=== PATIENT | female | born 1940 | race Native Hawaiian/Other Pacific Islander ===

== ENCOUNTER 2016-11-29 07:54 | Outpatient (CLI) | payer OTHER ==
[~2016-11-29 07:54] MED LIST: AMOX500C85 PO; ASA LO-DOSE81 MG; AUGMENTIN ES-6001 ML OR; BENICAR20 MG; BENZSOL4 OT; CARV25TA; CEFTIN500 MG OR; EFFER-K20 MEQ PO; FLUT0.05 NAS; FOLI1TAB26 PO; FURO20TA67; PRAV40TA PO; REQUIP1 MG PO
[2016-11-29 08:16] LABS: PLATELET COUNT 181 K/uL (152-353)
== END 2016-11-29 19:20 | disposition home or self-care (01) ==
LOC: LABW 07:54
PROVIDERS: Nuclear Medicine Nuclear Cardiology
DX: I13.0 Hypertensive heart and chronic kidney disease with heart failure and stage 1 through stage 4 chronic kidney disease, or unspecified chronic kidney disease (principal); I50.32 Chronic diastolic (congestive) heart failure; N18.4 Chronic kidney disease, stage 4 (severe); E78.4 Other hyperlipidemia; D50.8 Other iron deficiency anemias
CPT/HCPCS: 36415; 80053; 80061; 83735; 84439; 84443; 85027

== ENCOUNTER 2017-01-03 09:25 | Outpatient (CLI) | payer OTHER | END 2017-01-03 19:47 | disposition home or self-care (01) | LOC: LABW 09:25 | DX: N39.0 Urinary tract infection, site not specified (principal) | CPT/HCPCS: 87077; 87086; 87088; 87186 ==

== ENCOUNTER 2017-01-17 13:20 | Outpatient (CLI) | payer OTHER | END 2017-01-17 20:20 | disposition home or self-care (01) | LOC: LAB 13:20 | DX: R30.0 Dysuria (principal) | CPT/HCPCS: 81000; 87077; 87086; 87088; 87186 ==

== ENCOUNTER 2017-04-03 09:11 | Outpatient (CLI) | payer OTHER ==
[2017-04-03 09:30] LABS: POTASSIUM 3.9 mmol/L (3.6-5.2)
== END 2017-04-03 19:32 | disposition home or self-care (01) ==
LOC: LAB 09:11
PROVIDERS: Nuclear Medicine Nuclear Cardiology
DX: N17.8 Other acute kidney failure (principal); I50.9 Heart failure, unspecified
CPT/HCPCS: 80053; 83735

== ENCOUNTER 2017-04-08 10:03 | Outpatient (CLI) | payer OTHER | END 2017-04-08 11:05 | disposition home or self-care (01) | LOC: RAD 10:03 | DX: I50.9 Heart failure, unspecified (principal) ==

== ENCOUNTER 2017-05-07 09:36 | Outpatient (CLI) | payer OTHER | END 2017-05-07 19:06 | disposition home or self-care (01) | LOC: LAB 09:36 | PROVIDERS: Nuclear Medicine Nuclear Cardiology | DX: E78.4 Other hyperlipidemia (principal) | CPT/HCPCS: 80061; 84450; 84460 ==

== ENCOUNTER 2017-06-14 11:49 | Outpatient (CLI) | payer OTHER ==
[2017-06-14 12:37] LABS: PLATELET COUNT 155 K/uL (152-353)
[2017-06-14 13:22] LABS: POTASSIUM 3.8 mmol/L (3.6-5.2)
== END 2017-06-14 18:57 | disposition home or self-care (01) ==
LOC: LAB 11:49
PROVIDERS: Internal Medicine Medical Oncology
DX: D50.8 Other iron deficiency anemias (principal); E55.9 Vitamin D deficiency, unspecified
CPT/HCPCS: 80053; 82652; 82728; 83550; 85027

== ENCOUNTER 2017-08-12 13:08 | Outpatient (CLI) | payer OTHER | END 2017-08-12 14:10 | disposition home or self-care (01) | LOC: MAMMO 13:08 | DX: Z12.31 Encounter for screening mammogram for malignant neoplasm of breast (principal) ==

== ENCOUNTER 2017-09-11 10:33 | Outpatient (CLI) | payer OTHER ==
[2017-09-11 12:38] LABS: POTASSIUM 4.9 mmol/L (3.6-5.2)
== END 2017-09-11 21:11 | disposition home or self-care (01) ==
LOC: LAB 10:33
PROVIDERS: Internal Medicine
DX: E11.9 Type 2 diabetes mellitus without complications (principal); D51.0 Vitamin B12 deficiency anemia due to intrinsic factor deficiency
CPT/HCPCS: 80053; 80061; 81000; 82043; 82570; 82607; 83036; 84550

== ENCOUNTER 2017-10-16 09:50 | Outpatient (CLI) | payer OTHER ==
[2017-10-16 11:08] LABS: POTASSIUM 4.1 mmol/L (3.6-5.2)
== END 2017-10-16 19:38 | disposition home or self-care (01) ==
LOC: LABW 09:50
PROVIDERS: Internal Medicine
DX: N18.3 Chronic kidney disease, stage 3 (moderate) (principal)
CPT/HCPCS: 36415; 80069; 81000

== ENCOUNTER 2017-11-19 12:55 | Outpatient (CLI) | payer OTHER | END 2017-11-19 19:08 | disposition home or self-care (01) | LOC: LAB 12:55 | PROVIDERS: Nuclear Medicine Nuclear Cardiology | DX: E78.4 Other hyperlipidemia (principal) | CPT/HCPCS: 80061; 84450; 84460 ==

== ENCOUNTER 2017-12-16 09:09 | Outpatient (CLI) | payer OTHER | END 2017-12-16 21:31 | disposition home or self-care (01) | LOC: RAD 09:09 | DX: J42 Unspecified chronic bronchitis (principal) ==

== ENCOUNTER 2018-01-22 11:33 | Outpatient (CLI) | payer OTHER | END 2018-01-22 20:56 | disposition home or self-care (01) | LOC: LAB 11:33 | PROVIDERS: Nuclear Medicine Nuclear Cardiology | DX: I11.0 Hypertensive heart disease with heart failure (principal); E78.4 Other hyperlipidemia; I50.32 Chronic diastolic (congestive) heart failure | CPT/HCPCS: 80061; 84450; 84460 ==

== ENCOUNTER 2018-05-02 09:46 | Outpatient (CLI) | payer OTHER | END 2018-05-02 19:45 | disposition home or self-care (01) | LOC: LAB 09:46 | DX: R30.0 Dysuria (principal) | CPT/HCPCS: 87086; 87088 ==

== ENCOUNTER 2018-07-22 09:06 | Outpatient (CLI) | payer OTHER | END 2018-07-22 22:39 | disposition home or self-care (01) | LOC: LABW 09:06 | PROVIDERS: Nuclear Medicine Nuclear Cardiology | DX: E78.5 Hyperlipidemia, unspecified (principal); E55.9 Vitamin D deficiency, unspecified | CPT/HCPCS: 36415; 80061; 82306; 84450; 84460 ==

== ENCOUNTER 2018-10-20 09:30 | Outpatient (CLI) | payer OTHER ==
[2018-10-20 10:54] LABS: PLATELET COUNT 193 K/uL (152-353)
[2018-10-20 11:35] LABS: POTASSIUM 3.7 mmol/L (3.6-5.2); SODIUM 135 mmol/L (136-145)
== END 2018-10-20 22:18 | disposition home or self-care (01) ==
LOC: RAD 09:30
PROVIDERS: Internal Medicine
DX: E11.9 Type 2 diabetes mellitus without complications (principal); R07.89 Other chest pain
CPT/HCPCS: 36415; 80053; 80061; 82550; 83036; 84439; 84443; 84484; 85027; 85651

== ENCOUNTER 2018-11-10 10:00 | Outpatient (CLI) | payer OTHER | END 2018-11-10 20:51 | disposition home or self-care (01) | LOC: RAD 10:00 | DX: R05 Cough (principal) ==

== ENCOUNTER 2018-12-12 08:10 | Outpatient (CLI) | payer OTHER | END 2018-12-12 19:05 | disposition home or self-care (01) | LOC: LABW 08:10 | PROVIDERS: Nuclear Medicine Nuclear Cardiology | DX: E78.5 Hyperlipidemia, unspecified (principal) | CPT/HCPCS: 36415; 80061 ==

== ENCOUNTER 2019-05-22 12:38 | Outpatient (CLI) | payer OTHER | END 2019-05-22 23:59 | disposition home or self-care (01) | LOC: LAB 12:38 | DX: N30.80 Other cystitis without hematuria (principal) | CPT/HCPCS: 87088 ==

== ENCOUNTER 2019-07-15 07:32 | Outpatient (CLI) | payer OTHER ==
[2019-07-15 07:53] LABS: PLATELET COUNT 169 K/uL (152-353)
[2019-07-15 08:22] LABS: POTASSIUM 3.7 mmol/L (3.6-5.2)
== END 2019-07-15 22:53 | disposition home or self-care (01) ==
LOC: LABW 07:32
PROVIDERS: Nuclear Medicine Nuclear Cardiology
DX: R10.84 Generalized abdominal pain (principal); R19.7 Diarrhea, unspecified; N18.3 Chronic kidney disease, stage 3 (moderate); E78.49 Other hyperlipidemia
CPT/HCPCS: 36415; 80053; 80061; 82150; 83690; 83735; 84439; 84443; 85027

== ENCOUNTER 2019-08-03 14:26 | Outpatient (CLI) | payer OTHER ==
[2019-08-03 15:05] LABS: PLATELET COUNT 156 K/uL (152-353)
[2019-08-03 15:38] LABS: POTASSIUM 4.5 mmol/L (3.6-5.2)
== END 2019-08-03 20:18 | disposition home or self-care (01) ==
LOC: LAB 14:26
PROVIDERS: Internal Medicine
DX: Z00.00 Encounter for general adult medical examination without abnormal findings (principal); I11.0 Hypertensive heart disease with heart failure; E78.49 Other hyperlipidemia; E55.9 Vitamin D deficiency, unspecified; Z79.899 Other long term (current) drug therapy
CPT/HCPCS: 80053; 80061; 81000; 82306; 83036; 84439; 84443; 85027; 87077; 87086; 87088; 87185

== ENCOUNTER 2019-08-21 10:18 | Outpatient (CLI) | payer OTHER ==
[2019-08-21 10:56] LABS: POTASSIUM 4.6 mmol/L (3.6-5.2)
== END 2019-08-21 19:09 | disposition home or self-care (01) ==
LOC: LABW 10:18
PROVIDERS: Nuclear Medicine Nuclear Cardiology
DX: I49.8 Other specified cardiac arrhythmias (principal); I49.5 Sick sinus syndrome
CPT/HCPCS: 36415; 80048; 83735; 84443

== ENCOUNTER 2019-09-02 08:05 | Outpatient (CLI) | payer OTHER | END 2019-09-02 22:24 | disposition home or self-care (01) | LOC: MAMMO 08:05 | DX: Z13.820 Encounter for screening for osteoporosis (principal); Z12.31 Encounter for screening mammogram for malignant neoplasm of breast; N95.8 Other specified menopausal and perimenopausal disorders ==

== ENCOUNTER 2019-09-07 09:12 | Outpatient (CLI) | payer OTHER | END 2019-09-07 20:51 | disposition home or self-care (01) | LOC: RAD 09:12 | DX: J40 Bronchitis, not specified as acute or chronic (principal) ==

== ENCOUNTER 2019-12-21 09:18 | Outpatient (CLI) | payer OTHER | END 2019-12-21 23:05 | disposition home or self-care (01) | LOC: RAD 09:18 | DX: J40 Bronchitis, not specified as acute or chronic (principal) ==

== ENCOUNTER 2020-03-14 16:05 | Outpatient (CLI) | payer OTHER | END 2020-03-14 23:35 | disposition home or self-care (01) | LOC: RAD 16:05 | DX: M25.659 Stiffness of unspecified hip, not elsewhere classified (principal); M25.612 Stiffness of left shoulder, not elsewhere classified; R52 Pain, unspecified ==

== ENCOUNTER 2020-03-15 12:50 | Outpatient (CLI) | payer OTHER | END 2020-03-15 23:55 | disposition home or self-care (01) | LOC: LAB 12:50 | PROVIDERS: Nuclear Medicine Nuclear Cardiology | DX: E78.49 Other hyperlipidemia (principal) | CPT/HCPCS: 80061; 84450; 84460 ==

== ENCOUNTER 2020-05-02 09:22 | Outpatient (CLI) | payer OTHER | END 2020-05-02 23:59 | disposition home or self-care (01) | LOC: LAB 09:22 | DX: Z20.828 Contact with and (suspected) exposure to other viral communicable diseases (principal) | CPT/HCPCS: 87635; G2023; U00003 ==

== ENCOUNTER 2020-09-05 10:03 | Outpatient (CLI) | payer OTHER ==
[2020-09-05 11:09] LABS: PLATELET COUNT 183 K/uL (152-353)
[2020-09-05 11:42] LABS: POTASSIUM 3.9 mmol/L (3.6-5.2)
== END 2020-09-05 22:08 | disposition home or self-care (01) ==
LOC: MAMMO 10:03
PROVIDERS: ATTEND Internal Medicine
DX: Z12.31 Encounter for screening mammogram for malignant neoplasm of breast (principal); E78.2 Mixed hyperlipidemia; N18.30 Chronic kidney disease, stage 3 unspecified; D64.89 Other specified anemias; E03.8 Other specified hypothyroidism
CPT/HCPCS: 36415; 80053; 80061; 84443; 85027

== ENCOUNTER 2020-10-31 08:56 | Outpatient (CLI) | payer OTHER ==
[2020-10-31 09:17] LABS: PLATELET COUNT 150 K/uL (152-353)
[2020-10-31 09:37] LABS: POTASSIUM 3.9 mmol/L (3.6-5.2)
== END 2020-10-31 18:58 | disposition home or self-care (01) ==
LOC: LABW 08:56
PROVIDERS: ATTEND Internal Medicine
DX: E11.9 Type 2 diabetes mellitus without complications (principal)
CPT/HCPCS: 36415; 80053; 83036; 85027

== ENCOUNTER 2021-01-05 09:22 | Outpatient (CLI) | payer OTHER ==
[2021-01-05 09:40] LABS: PLATELET COUNT 150 K/uL (152-353)
[2021-01-05 10:00] LABS: POTASSIUM 4.6 mmol/L (3.6-5.2)
== END 2021-01-05 21:27 | disposition home or self-care (01) ==
LOC: LABW 09:22
PROVIDERS: ATTEND Nuclear Medicine Nuclear Cardiology
DX: E78.2 Mixed hyperlipidemia (principal); N18.30 Chronic kidney disease, stage 3 unspecified; D64.89 Other specified anemias; E03.8 Other specified hypothyroidism
CPT/HCPCS: 36415; 80053; 80061; 84443; 85027

== ENCOUNTER 2021-03-24 22:52 | Emergency (ER) | payer OTHER ==
[~2021-03-24] VITALS: Ht 30.5 cm; Wt 0.5 kg
[2021-04-07 11:41] LABS: POTASSIUM 4.7 mmol/L (3.6-5.2)
[2021-04-07 11:43] LABS: PARTIAL THROMBOPLASTIN TIME 22.9 SECONDS (24.5-33.6)
[2021-04-07 11:44] LABS: PLATELET COUNT 132 K/uL (152-353)
== END 2021-03-25 01:38 | disposition short-term general hospital (02) ==
LOC: ED 22:52
PROVIDERS: Family Medicine
PROC: 0T9B70Z Drainage of Bladder with Drainage Device, Via Natural or Artificial Opening (ICD-10-PCS; principal; 2021-03-24)
DX: I63.9 Cerebral infarction, unspecified (principal); R74.8 Abnormal levels of other serum enzymes; G81.91 Hemiplegia, unspecified affecting right dominant side; R29.810 Facial weakness; R47.9 Unspecified speech disturbances; Z11.52 Encounter for screening for COVID-19
CPT/HCPCS: 51702; 80053; 81000; 82550; 82553; 84484; 85027; 85610; 85730; 87077; 87086; 87088; 87186; 87635; 92977; 93005; 96365; 96375; 99285; J2405; J2997; U0003

== ENCOUNTER 2021-05-05 13:45 | Inpatient (IN) | payer OTHER ==
[~2021-05-05] VITALS: Ht 157.5 cm; Wt 73.7 kg
[2021-05-05 14:43] VITALS: BP 139/60; TEMP 97.7; Ht 157.5 cm; Wt 73.7 kg
--- NOTE | 2021-05-05 15:01 | NUR ---
Patient was admitted to the Swing Bed Program and is on moist and minced with thin liquids and receives a [place] Shake with meals; hemiplegia fullt cerebral inf. and is 5'2" or 62" and IBW = 110 +/-10% (99 to 121 lbs.) and is at 164.7 lbs. and BMI at 30.12 and is Class I Obesity and is 150% of IBW andis an 81 YOF and is on folic acid and lasix and RD reviewed all medications and the EMR information and details' Labs reveal WBC, Platelet count, D1, and Free T3 all depressed and those elevated are glucose at 132, BUN, Creat., RBC, ESR, HGBA1C 7.1, Alk PO4, Troponin, B Greer Peptide, Trig at 200 and VLDL all elevated and reviewed all labs. kcal needs for IBW x 25 to 40 = 1250 t0 2000 kcal/day, protein x .8 to 1.5 = 40 to 75 grams per day and fluids for IBW x 25 to 30 = 1250 to 2000 ml/cc per day. RD available as needed. RD Recommendations: 1-Monitor Labs 2-May want to add 1800 Calorie High Fiber Cardiac diet plan 3-OT, ST and TX to work with the patient as needed. 4-Add a MVI if eating <50% of meals 5-Add Vitamin C 500 mg BID 6-Add ZNSO4 220 mg per day x 14 days
[2021-05-05 20:00] VITALS: BP 125/59; TEMP 98.2
--- NOTE | 2021-05-05 20:03 | NUR ---
SPO2 ON R/A 97%, HR 66, RR 16.
--- NOTE | 2021-05-06 07:35 | NUR ---
Pt. RESTING IN BED WITH WEAKNESS ON R SIDE OF BODY. REDNESS AT BUTTOCK. TURN WITH ASSIST.
--- NOTE | 2021-05-06 08:17 | NUR ---
PRN TX NOT NEEDED AT THIS TIME. HR 73, RR 16 SPO2 97% ON RA, BBS CLEAR-NAD NOTED AT THIS TIME
--- NOTE | 2021-05-06 17:45 | NUR ---
FAMILY MEMBERS AT THE WINDOW VISITING. Pt. MOVING R HAND AND WAVING. Pt. CAN MOVE R FOOT A SLIGHT AMOUNT.
[2021-05-06 20:00] VITALS: BP 123/55; TEMP 98.7
--- NOTE | 2021-05-06 22:54 | NUR ---
PT IS ALERT, ORIENTED. PT HAS PEG TUBE BUT IS NOT USING IT. PT TAKING FOOD, DRINK AND MEDS BY MOUTH.
--- NOTE | 2021-05-07 02:48 | NUR ---
PATIENT HAS BEEN CHANGED AND PERINEAL AREA HAS BEEN WASHED
--- NOTE | 2021-05-07 04:00 | NUR ---
PT DOES REQUEST BEDPAN TO URINATE. PT IS ALERT AND ORIENTED. NO VOICED COMPLAINTS AT THIS TIME.
[2021-05-07 08:00] VITALS: BP 134/54; TEMP 97.4
--- NOTE | 2021-05-07 08:02 | NUR ---
IN PT'S ROOM FOR ASSESSMENT, PT IS LAYING IN LOW FOWLERS RESTING WITH TV ON WEARING HER GLASSES. PATIENT IS AWAKE AND ALERT AND SPEAKING CLEARLY. HER DENTURES ARE NOT IN. LUNG SOUNDS ARE PRESENT AND CLEAR, NO COUGH IS PRESENT. HEART SOUNDS ARE REGULAR RATE AND RHYTHM, PULSES FELT IN ALL FOUR EXTREMITIES, CAP REFILL <3 SEC, NO EDEMA PRESENT. SLIGHT SKIN TINTING PRESENT, SKIN IS WARM AND DRY. GASTRIC SOUNDS PRESENT IN ALL FOUR QUADRANTS, ABDOMEN IS SOFT AND FLAT WITH PEG TUBE PRESENT UNDERNEATH BANDAGE. PT SHOWS WEAKNESS IN THE RT UPPER AND LOWER EXTREMITIES. PT DENIES ANY PAIN OR NEEDS AT THIS TIME.
--- NOTE | 2021-05-07 08:53 | NUR ---
MORNING MEDICATIONS WERE ADMINISTERED TO PT. PT SWALLOWED PILLS WITH NO DIFFICULTY. PT IS LEFT IN HIGH FOWLERS, BEDRAILS UP X3, AND CALL LIGHT WITHIN REACH. PT DENIES ANY NEEDS AT THIS TIME.
--- NOTE | 2021-05-07 11:18 | NUR ---
PT HAS BEEN ROLLED TO THE RIGHT SIDE AND PROPPED USING PILLOWS. BUTTOCKS AREA IS VERY RED AND EXCORIATED, AMMONIA TECHNICIAN GOT SOME CALAZINE LOTION AND APPLIED TO BUTTOCK AREA. WILL CONTINUE TO MONITOR.
--- NOTE | 2021-05-07 12:25 | NUR ---
PT HAS BEEN MOVED UP IN THE BED AND ROTATED TO THE LEFT SIDE USING PILLOWS PROPS AND A PILLOW BETWEEN HER KNEES. PT HAS FAMILY AT THE WINDOW VISITING AND TALKING TO HER THROUGH THE PHONE. PT DENIES ANY NEEDS AT THIS TIME.
[2021-05-07 20:00] VITALS: BP 116/56; TEMP 98.1
--- NOTE | 2021-05-08 02:37 | NUR ---
05/07/21 2000: PT AWAKE TALKING ON TELEPHONE. PT ALERT, ORIENTED. PT STATED THAT OT HAD WORKED WITH HER TODAY AND SHE FELT PRETTY GOOD. NO VOICED COMPLAINTS AT THIS TIME.
[2021-05-08 08:00] VITALS: BP 149/59; TEMP 98.7
--- NOTE | 2021-05-08 08:25 | NUR ---
RT TO ASSESS PT. PT BBS ARE CLEAR/DIMINISHED AT THIS TIME. NO INDICATION FOR NEB TX. SPO2 IS 94% ON 3LPM NC AT 32%. HR-59. WILL CONTINUE TO MONITOR PT.
--- NOTE | 2021-05-08 08:51 | NUR ---
RT TO ASSESS PT. BBS ARE CLEAR/DIMINISHED. NO INDICATION FOR PRN TX AT THIS TIME. SPO2 IS 94% ON RA.
[2021-05-08 20:00] VITALS: BP 134/54; TEMP 98.1
--- NOTE | 2021-05-09 06:45 | NUR ---
Pt rested through the night with no c/o. No s/s of distress. Able to voice needs/concerns. Call light in easy reach.
[2021-05-09 08:00] VITALS: BP 143/62; TEMP 97.9
--- NOTE | 2021-05-09 08:05 | NUR ---
PT COMPLAINING OF NECK PAIN AT A 3 ON 0-10 PAINSCAL THIS AM, ADJUSTED PILLOWS ON BED AND ADMINISTERED TYLENOL, WILL REASSESS PAIN, PT LYING IN HF, NAD NOTED, NONLABORED BREATHING, NO FURTHER NEEDS AT THIS TIME, WILL CONTINUE TO MONITOR
--- NOTE | 2021-05-09 10:30 | NUR ---
PT AND OT IN PATIENT RM TO PUT PATIENT IN CHAIR, EXTENSIVE ASSITANCE NEEDED X2, PATIENT TRANSFERRED FROM BED TO CHAIR, NAD NOTED
--- NOTE | 2021-05-09 12:45 | NUR ---
IN PT RM TO PUT PT BACK TO BED FROM CHAIR, RACHEL LIFT USED, TOTAL ASSISTANCE NEEDED, NAD NOTED, PT PLACED IN HF, LUNCH WARMED AND SETUP FOR PT AT THIS TIME, NO FURTHER NEEDS, CALL LIGHT PLACED WITHIN REACH, WILL CONTINUE TO MONITOR
[2021-05-09 20:00] VITALS: BP 124/58; BP 136/53; TEMP 98
--- NOTE | 2021-05-10 06:03 | NUR ---
Pt resting in bed alert at this time watching tv with no c/o voiced. Assisted pt with bed murray x3 this shift. Pt does call when needing to toilet but also wears brief due to occasional incontinent episodes. Pt has called x2 for assist with repositioning RLE. Pt states she is unable to move it. No s/s of distress at this time. Call light in easy reach.
[2021-05-10 08:00] VITALS: BP 122/55; TEMP 97.7
[2021-05-10 20:00] VITALS: BP 121/55; TEMP 98.5
[2021-05-11 08:00] VITALS: BP 150/62; TEMP 97.4
--- NOTE | 2021-05-11 17:22 | NUR ---
IDT Swing Bed Meeting today: Resident is on a Regular diet with minced and moist foods with thin liquids and receives [place] Glucerna with meals, I visited iwht the patient today and she stated she was pleased with meals.62 inches at 166.2 lbs. Stated the coffee is too strong and I will get them to send 1 cup of coffee, an extra cup and 1 cup of hot water and then she can weaken as is needed. She dislikes eggs, likes pancakes and dry cereal and will get the FS dept. to alter these every other day and also I will tlak with the GM/CDM to make sure all is carried out and is on the tray card. Her favorite cereals are Cheerios and Fruit Loops and likes milk with cereal. RD available as needed.
[2021-05-11 20:00] VITALS: BP 116/45; TEMP 98.2
--- NOTE | 2021-05-12 04:10 | NUR ---
PT RESTING WELL. NO DISTRESS NOTED. NO VOICED COMPLAINTS AT THIS TIME.
[2021-05-12 08:10] VITALS: BP 115/54; TEMP 97.9
--- NOTE | 2021-05-12 10:16 | NUR ---
we had IDT meeting with pt in room yesterday, see signed list, and with her granddaughter, Nicole Goldberg on speaker phone, and with Veronica Arellano RD also on speaker phone. Pts goal is to return home to her and to be as independent as possible. She stated if needed she would prefer [facility] in home or to attend out patient therapy.
--- NOTE | 2021-05-12 11:28 | NUR ---
PT IN LOW-FOWLERS POSITION IN BED. NAD NOTEDL. PT C/O HEADACHE, ADMINISTERED TYLENOL ORDERED. PT RATED PAIN A 6 ON PAIN SCALE OF 1-10, 10 BEING WORSE. PT ALERT. PT REFUSED BREAKFAST TRAY, "I DON'T WANT IT." FAMILY BROUGHT PT BREAKFAST AND PT WAS CONTENT. NO OTHER VOICED COMPLAINTS. CONTINUES TO HAVE WEAKNESS TO RIGHT UPPER AND LOWER EXTREITIES.
[2021-05-12 20:00] VITALS: BP 114/47; TEMP 98.2
[2021-05-13 08:00] VITALS: BP 118/44; TEMP 97.8
--- NOTE | 2021-05-13 08:08 | NUR ---
PT IN LOW FOWLERS POSITION IN BED WITH NECK PILLOW IN PLACE. PT STATED SHE NEEDED TO BE CHANGED BECAUSE SHE HAD A BM, AFTER CHECKING PT, PT DID NOT HAVE A BM JUST FLATULUS. PT STATED SHE FELT BETTER JUST RELEASING FLATULUS. PT ALERT AND ORIENTED. NAD NOTED. DENIES ANY PAIN/DISCOMFORT.
--- NOTE | 2021-05-13 15:57 | NUR ---
PT IN BED WITH EYES CLOSED AND SNORING. PT REFUSED A BATH TODAY. NO NAD NOTED.
--- NOTE | 2021-05-13 17:25 | NUR ---
PT HAD BM X2 ON THIS SHIFT. PT STATES THAT SHE IS CONSTIPATED, BM SOFT AND FORMED. PT HAS RASH TO RECTAL AREA AND BARRIER CREAM APPLIED. DENIES ANY PAIN OR DISCOMFORT. NAD NOTED.
[2021-05-13 20:00] VITALS: BP 115/47; TEMP 98.5
--- NOTE | 2021-05-14 04:02 | NUR ---
Pt resting in bed with eyes closed. Pt calls for assist after having incontinent episodes. Pt has had soft formed BM x2 this shift thus far. Pt requires two person assist with being pulled up in bed and repositioning. Pt given Tylenol per request with no further c/o voiced at this time. Call light in easy reach.
[2021-05-14 08:00] VITALS: BP 138/67; TEMP 98.1
--- NOTE | 2021-05-14 10:54 | NUR ---
PT IN LOW FOWLERS POSITION IN BED. ALERT AND OREIENTED. PT ASKED FOR HER DEPENDS TO BE CHECKED, SHE THOUGHT SHE HAD A BM. CHECKED PT AND PT HAD A BM, SOFT AND FORMED STOOLS. CHANGED PT AND SET UP BREAKFAST MEAL. PTS LANTUS NOT ADMINISTERED R/T PT LIMITED INTAKE OF BREAKFAST AND SE=830. AM MEDS ADMINISTERED PO AND PT TOLERATED WELL. DENIES ANY PAIN/DISCOMFORT.
[2021-05-14 20:00] VITALS: BP 145/64; TEMP 98.2
--- NOTE | 2021-05-15 04:35 | NUR ---
Pt resting in bed with eyes closed. Easily aroused during rounds for VS checks. Denies c/o pain/discomfort. Incontinent care provided. No s/s of distress. Call light in easy reach.
[2021-05-15 08:00] VITALS: BP 129/62; TEMP 97.9
[2021-05-15 20:00] VITALS: BP 118/61; TEMP 98.1
--- NOTE | 2021-05-16 04:18 | NUR ---
PT RESTING WELL. NO COMPLAINTS VOICED.
[2021-05-16 08:00] VITALS: BP 119/52; TEMP 98.1
--- NOTE | 2021-05-16 14:30 | NUR ---
SPOKE WITH PATIENT'S NIECE JESSICA FOR AN UPDATE.
[2021-05-16 20:00] VITALS: BP 126/52; TEMP 97.9
--- NOTE | 2021-05-16 20:36 | NUR ---
PT C/O SEVERE PAIN IN RIGHT AND LEFT LEGS. ER DOCTOR NOTIFIED AND ORDER RECEIVED FOR TORADOL IM. ORDER WRITTEN AND SCANNED TO PHARMACY.
[2021-05-17 08:00] VITALS: BP 111/52; TEMP 98.3
--- NOTE | 2021-05-17 11:22 | NUR ---
PT UP IN CHAIR WITH ASSISTANCE FROM [facility] STAFF AND OT. PT ALERT AND OREIENTED. NAD NOTED. PTS LANTUS NOT GIVEN R/T TC=274 AND PT ONLY ATE 25% OF BREAKFAST. DENIES ANY PAIN/DISCOMFORT. AM MEDS ADMINISTERED AND PT TOLERATED WELL. PT ALERT AND ORIENTED. WILL GIVE LOGICAL VERBAL FEEDBACK. PT HAS RIGHT SIDED WEAKNESS IN UPPER AND LOWER EXTREMITIES.
--- NOTE | 2021-05-17 15:51 | NUR ---
PT C/O PAIN IN BILATERAL LOWER EXTREMITIES. PER DR CEDENO TORADOL 30MG IM D/C'D AND NEW ORDER FOR TRAMADOL 50MG PO Q8H PRN. ADMINISTERED TRAMADOL ORDERED AT 1525 FOR PAIN. PT UNABLE TO RATE PAIN. PT UP IN CHAIR FOR MOST OF DAY WORKING ON [employer] PUZZLE. WITH ASSISTANCE FROM [facility] STAFF TRANSFERRED BACK TO BED.
[2021-05-17 20:00] VITALS: BP 125/57; TEMP 98.4
[2021-05-18 08:00] VITALS: BP 122/55; TEMP 97.7
--- NOTE | 2021-05-18 10:50 | NUR ---
PT LAYING SUPINE IN BED, ALERT AND ORIENTED. NAD NOTED. DENIES ANY PAIN/DISCOMFORT AT PRESENT TIME. AM MEDS ADMINISTERED ORDERED AND PT TOLERATED WITH NO DIFFICULTY. PT CONTINUES TO HAVE WEAKNESS TO RIGHT SIDE UPPER AND LOWER EXTREMITIES.
--- NOTE | 2021-05-18 18:19 | NUR ---
PT LYING SUPINE IN BED. PT DENIES ANY PAIN/DISCOMFORT. NO PAIN MED ADMINISTERED THIS SHIFT, PT STATED "I MOSTLY NEED IT AT NIGHT." PT ALERT AND ORIENTED. PT UP IN CHAIR MOST OF THE DAY ASSISTED BY PHYSICAL THERAPY. [facility] STAFF ASSISTED PT BACK TO BED.
[2021-05-18 20:00] VITALS: BP 120/52; TEMP 98.1
--- NOTE | 2021-05-19 04:42 | NUR ---
Pt resting in bed with eyes closed. HOB in mid gary's position. Cont to require assistance with moving right leg when repositioning in bed. Also requires 2 person assist at times with incontinent care due to resident unable to hold herself over on one side long enough for staff to perform care. No s/s of distress at this time. Call light in easy reach.
--- NOTE | 2021-05-19 07:36 | NUR ---
PT AWAKE AND ALERT IN LOW FOWLERS POSTION IN BED. PT DENIES ANY PAIN OR DISCOMFORT AT PRESENT TIME. PT STATED "I DIDN'T GET ANY REST LAST NIGHT, I WAS HURTING ALL NIGHT IN MY NECK AND LEGS. PT WAS GIVEN PAIN MED ORDERED LAST DOSE AT THE END OF 7P-7A SHIFT.
[2021-05-19 08:14] VITALS: BP 108/52; TEMP 98
--- NOTE | 2021-05-19 10:48 | NUR ---
PT IN SUPINE POSITION IN BED WITH EYES CLOSED. NO C/O PAIN OR DISCOMFORT VOICED THIS AM.
--- NOTE | 2021-05-19 12:22 | NUR ---
PT IN BED EATING LUNCH, AT OUTSIDE WINDOW AND TALKING TO PT ON THE TELEPHONE. DENIES ANY PAIN/DISCOMFORT AT PRESENT TIME. PT HAD SMALL BM, FORMED AND SOFT.
--- NOTE | 2021-05-19 15:15 | NUR ---
Talked with Lianne today over the IDT team and she stated that the patient stated no appetite and has gone from 164 to 16o lbs. with a decrease fo 4 lbs. in the last 2 weeks and relayed to the FS staff about weak coffee as she wants and is on a minced and moist meats with thin liquids and [place] Glucerna with meals and dilikes vanilla and chocolate and realyed ot the fSD to add strawberries or strawberry syrup. RD available as needed.
[2021-05-19 20:00] VITALS: BP 135/60; TEMP 97.9
--- NOTE | 2021-05-20 02:28 | NUR ---
TATIANA WAS HELD BLOOD SUGAR IS 115.
--- NOTE | 2021-05-20 02:28 | NUR ---
PT WAS GIVEN TRAMADOL ORDERED FOR PAIN.
--- NOTE | 2021-05-20 03:06 | NUR ---
PT WAS WHEELCHAIRED TO XRAY FOR CT.
[2021-05-20 08:03] VITALS: BP 105/64; TEMP 97.5
[2021-05-20 20:00] VITALS: BP 131/81; TEMP 98
--- NOTE | 2021-05-20 20:00 | NUR ---
PT STATES SHE IS HUNGRY. PT'S FAMILY BROUGHT PT A MEAL FROM HOME. SET UP WAS DONE. DENTURES WERE CLEANED AND INSERTED. PT IS PRESENTLY TALKING ON THE PHONE WITH FRIEND. NO COMPLAINTS VOICED. BEDSIDE TABLE IN EASY REACH. INSTRUCTED PT TO CALL FOR ASSISTANCE. PT VOICED UNDERSTANDING.
--- NOTE | 2021-05-20 21:00 | NUR ---
PM MEDICATIONS WERE GIVEN. PT HAD SMALL SOFT STOOL. PT WAS CLEANED AND NEW BRIEF WAS PLACED ON.
--- NOTE | 2021-05-20 22:34 | NUR ---
TATIANA WAS HELD. BLOOD SUGAR IS 110.
--- NOTE | 2021-05-20 23:00 | NUR ---
TRAMADOL WAS GIVEN TO PT FOR COMPLAINTS OF BONE PAIN.
[2021-05-21 08:00] VITALS: BP 128/56; TEMP 97.7
--- NOTE | 2021-05-21 18:45 | NUR ---
PT WAS INTUBATED BY DR. ANDREWS AT 1826. PT ON VENTILATOR. SETTINGS TIDAL VOLUME 500, FIO2 50%,RR 22, PEEP 5, PS10. PT IS STABLE AND WILL CONTINUE TO BE MONITORED.
[2021-05-21 20:00] VITALS: BP 107/56; TEMP 98.2
--- NOTE | 2021-05-21 22:24 | NUR ---
PT STATED SHE WAS FEELING MUCH BETTER TODAY. NO VOICED COMPLAINTS.
--- NOTE | 2021-05-22 07:46 | NUR ---
PT LYING SUPINE IN LOW FOWLERS POSITION IN BED WITH EYES CLOSED. RESP EVEN AND UNLABORED. NAD NOTED.
[2021-05-22 08:00] VITALS: BP 134/84; TEMP 97.8
--- NOTE | 2021-05-22 18:30 | NUR ---
PT LAYING IN BED WATCHING TELEVISION. DENIES ANY PAIN/DISCOMFORT TODAY, PT REFUSED SCHEDULED PAIN MED THIS SHIFT. DID NOT ADMINISTER LANTUS THIS SHIFT R/T PTS DECREASED APPETITE AND BLOOD GLUSCOSE BEING 117. PT HAD A BMX1 WITHOUT CONSTIPATION. PT REPLIED REGARDING DECREASED APPETITE, "I JUST DON'T HAVE A TASTE FOR CERTAIN FOODS." FAMILY BRINGS IN FOOD FOR PT OCCASIONALY. NAD NOTED.
[2021-05-22 20:00] VITALS: BP 104/57; TEMP 98.6
--- NOTE | 2021-05-23 05:15 | NUR ---
Pt resting in bed with eyes closed. Pt requires extensive two person assist with repositioning and pulling up in bed. Encouraged pt to assist with positioning but pt dependent upon staff during this shift and states "I can't." Cont to have RLE weakness and requires staff to position RLE for her but is able to use RUE. Pt utilizes both hands when holding drinking cup. Calls for bed murray at times but is also incontinent of bowel and bladder. No s/s of distress. Call light in easy reach.
[2021-05-23 08:00] VITALS: BP 122/57; TEMP 98.1
--- NOTE | 2021-05-23 08:35 | NUR ---
PT LYING SUPINE IN BED WITH EYES CLOSED. RESP. EVEN AND UNALABORED. NAD NOTED.
--- NOTE | 2021-05-23 13:50 | NUR ---
PT UP IN CHAIR BY THE WINDOW IN HER ROOM WITH ASSISTANCE FROM PT. DENIES ANY PAIN/DISCOMFORT. NO VOICED COMPLAINTS.NAD NOTED. PT PARTICIPATED MORE TODAY WITH PHYSICAL THERAPY..
--- NOTE | 2021-05-23 18:45 | NUR ---
PT SAT UP IN CHAIR UNTIL AFTER LUNCH. DENIES ANY PAIN/DISCOMFORT THIS SHIFT. AND FAMILY VISITED PT AT ROOM WINDOW DURING THE DAY. PT A&O X4. NAD NOTED. PT HAD BM X1 THIS SHIFT, NORMAL AND FORMED BM, NO CONSTIPAITON.
[2021-05-23 20:00] VITALS: BP 111/57; TEMP 97.9
--- NOTE | 2021-05-23 20:25 | NUR ---
Pt alert resting in bed in low gary's position. Denies c/o pain/discomfort at this time. Pt watching tv. No s/s of distress.
--- NOTE | 2021-05-24 04:40 | NUR ---
Pt resting in bed with eyes closed. Calls for bedpan as needed but also has occassional incontinent episodes. PRN tramadol given at 2300 for right shoulder pain with relief noted. Required two person assist with pullinng pt up in bed. Pt attempts to help by using her hands on the rail but doesn't assist with pulling her body up. Has rested through the night without further c/o. No s/s of distress. Call maryjane in easy reach.
[2021-05-24 08:00] VITALS: BP 115/65; TEMP 98.3
--- NOTE | 2021-05-24 15:19 | NUR ---
PT LAYING SUPINE IN BED WITH EYES CLOSED AND SNORING. NAD NOTED. NO C/O PAIN/DISCOMFORT TODAY. PT UP IN CHAIR FOR A FEW HOURS BEFORE LUNCH. PT USED THE BEDSIDE COMMODE WITH ASSISTANCE FROM STAFF X2 PEOPLE. PT TRADED OFF TO NURSE ALEMAN AND REPORT GIVEN AT 1520.
[2021-05-24 20:00] VITALS: BP 119/54; TEMP 98.2
--- NOTE | 2021-05-24 21:00 | NUR ---
PT IS SWING BED STATUS. PT IS RECEIVING PT DURING THE DAY SHIFT. PT STATES "I SO READY TO GO HOME". PM MEDICATIONS WERE GIVEN AND PO PAIN MEDICATION. PT ASK FOR ASSIT TO BEDPAN. PCT AT BEDSIDE TO ASSIST. BEDSIDE TABLE IN EASY REACH.
--- NOTE | 2021-05-25 01:24 | NUR ---
PAIN MEDICATION EFFECTIVE. PT WITH NO COMPLAINTS VOICED.
[2021-05-25 08:00] VITALS: BP 124/57; TEMP 98.3
[2021-05-25 20:00] VITALS: BP 118/52; TEMP 98.1
[2021-05-26 08:00] VITALS: BP 116/51; TEMP 98.4
--- NOTE | 2021-05-26 08:00 | NUR ---
PT IS AWAKE AND ALERT AND ORIENTED LAYING IN THE BED WATCHING TV. HEART SOUNDS S1 AND S2 ARE AUSCULTATED, PULSES IN ALL 4 EXTREMITIES ARE PALPATED, +1 PITTING EDEMA PRESENT IN LLE. WEAKNESS IN RUE AND RLE INDICATED. SKIN TURGOR IS TENTING, CAP REFILL <3 SEC. GASTRIC SOUNDS PRESENT IN ALL QUADRANTS. PT DENIES ANY PAIN AT THIS TIME. CALL LIGHT IS WITHIN REACH, BED RAILS UP X2, AND PT LEFT IN LF POSITION. WILL CONTINUE TO MONITOR.
[2021-05-26 20:00] VITALS: BP 123/53; TEMP 98.7
--- NOTE | 2021-05-27 04:42 | NUR ---
Pt is resting in bed with eyes closed. PRN pain med given earlier with hs meds for BLE and lower back pain with relief noted. Pt had incontinent episodes this shift with pericare given. No s/s of distress noted. Call light in easy reach.
--- NOTE | 2021-05-27 07:30 | NUR ---
PT REQUEST BRIEF CHANGE AT THIS TIME, PT ABLE TO TURN TO RT SIDE WITH MINIMAL ASSIST AND PT TURNED TO LT SIDE WITH EXTENSIVE ASSIST X 1, PT DIDNOT ASSIST WITH BRIEF CHANGE OR WIPING, PT TOLERATED WELL, NAD NOTED, NONLABORED BREATHING, PT STATES SHE WANTS ALL SIDE RAILS UP, ADVISED PT THAT IS A RESTRAINT AND PT STILL REQUEST TO HAVE BED RAILS UP X4, NO FURTHER NEEDS AT THIS TIME, CALL LIGHT PLACCED WITHIN REACH, WILL CONTINUE TO MONITOR
[2021-05-27 08:00] VITALS: BP 124/57; TEMP 97.9
[2021-05-27 20:00] VITALS: BP 125/53; TEMP 98.2
[2021-05-28 08:00] VITALS: BP 118/55; TEMP 97.9
--- NOTE | 2021-05-28 10:56 | NUR ---
DRESSING CHANGED TO PEG TUBE SITE, REMOVED PREVIOUS DRESSING AND CLEANSED AREA AROUND PEG TUBE SITE WITH NS, NO FOUL ODOR NOTED, SITE CLEAN AND DRY, DRAIN GAUZE PLACED TO PEG SITE AND ABD PLACED OVER PEG SITE AND PEG TUBE, ABD PADS TAPED IN PLACE WITH MEDIPORE TAPE, PT TOLERATED WELL, NAD NOTED, PT LYING IN HF WATCHING TV, NO FURTHER NEEDS AT THIS TIME, CALL LIGHT WITHIN REACH, WILL CONTINUE MONITOR
[2021-05-28 20:00] VITALS: BP 129/50; TEMP 98.3
[2021-05-29 08:00] VITALS: BP 94/51; TEMP 97.8
[2021-05-29 20:00] VITALS: BP 123/47; TEMP 97.6
--- NOTE | 2021-05-30 03:29 | NUR ---
PT RESTING QUIETLY. NO DISTRESS NOTED. PT CALLS FOR BEDPAN WHEN SHE NEEDS TO VOID.
[2021-05-30 08:00] VITALS: BP 138/55; TEMP 98.2
[2021-05-30 20:00] VITALS: BP 134/57; TEMP 99.2
--- NOTE | 2021-05-31 05:34 | NUR ---
PT HAS RESTED WELL THIS SHIFT. NO COMPLAINTS OF PAIN. PT HAS CALLED FOR BEDPAN 2X THIS SHIFT AND WAS INCONTINENT IN DIAPER DURING NIGHT. PT MOVED THE RIGHT ARM AND HAND BUT HAS LITTLE STRENGTH.
[2021-05-31 08:00] VITALS: BP 128/64; TEMP 98.9
--- NOTE | 2021-05-31 12:30 | NUR ---
IN PT RM TO ASSIST PT BACK TO BED AND ON BEDPAN, EXT ASSIST NEEEDED X2 TO LIFT PT TO STANDING POSITION AND PIVOT PT OVER TO BED, PT UNABLE TO GIVE MUCH ASSISTANCE WITH TRANSFERRING FROM CHAIR TO BED, PT TOLERATED WELL, PT PLACED ON BED MORALES AT THIS TIME, CALL LIGHT WITHIN REACH, WILL CONTINUE TO MONITOR
[2021-05-31 20:00] VITALS: BP 112/50; TEMP 98.4
[2021-06-01 08:00] VITALS: BP 109/52; TEMP 97.4
--- NOTE | 2021-06-01 10:48 | NUR ---
Visited with patient moris petty. Provided her with coloring sheets, and word search puzzles. She was telling ghost writer that she had been given color sheets the other day and that she had worked on them. She said that if she did not finish the sheets that she was given she would finish them at home.
--- NOTE | 2021-06-01 17:19 | NUR ---
Visited with patient in her room this afternoon. Resident said, "Leg me show you something. Look down at my foot." Resident raised her right leg up from the bed and wiggled her right toes. Resident stated, "I couldn't do that this morning. This afternoon around 2 o'clock something told me to try to lift my leg and that was the first time I have been able to do it since the stroke. I can move my right shoulder some too." While talking with Mrs. Yao, her granddaughter Nicole Goldberg arrived outside the room window. Mrs. Yao saw her and told her to call. Nicole called from her cell phone and Mrs. Yao answered her room phone and told her to look at her legs. Mrs. Yao asked for her blankets to be moved so Nicole could see that it was her affected leg that she was lifting. Mrs. Yao lifted her right leg up a few inches from the bed and held it there for a few seconds multiple times. Mrs. Yao was also able to bend her right knee slightly. Mrs. Yao shed some happy tears and Nicole applauded her from the window. Provided encouragement to keep working hard with therapy. Also encouraged patient to practice using the bedside commode with staff member assistance x 2 rather than using the bedpan when she needs to toilet. Reminded her that she is making progress toward her goal of returning home with her . Granddaughter Nicole Goldberg told her how proud she was of the progress she has made and asked her to continue working hard to gain as much function back as possible. Upon leaving the room so they could enjoy their window visit in private, asked both if they needed anything else. Both should their head "no" and smiled. Then Mrs. Yao said, "I can't wait for the therapy girls to see that I can move my leg. They are going to be so excited! Praise the Lord!". .
--- NOTE | 2021-06-01 17:37 | NUR ---
Called the pharmacy to check on the status of digestive advantage capsule. Per pharmacy, capsule unavailable due to a property appraiser's shortage. Spoke to Mrs. Yao about the medication being unavailable and Mrs. Yao stated she was unfamiliar with the medicine. Mrs. Yao asked that I ask her granddaughter Nicole about the medication. Called her granddaughter Nicole that works in a local doctor's office and Nicole is also unfamiliar with this medication and was not aware that it was on her list of medication.
[2021-06-01 20:00] VITALS: BP 127/54; TEMP 98.6
[2021-06-02 08:00] VITALS: BP 132/64; TEMP 98.1
--- NOTE | 2021-06-02 11:39 | NUR ---
06/02/21 1135 PHYSICAL THERAPY IN WITH PT FOR DAILY EXCERCISES.ALSO SWING BED COORIDNATOR PRESENT IN ROOM FOR WEEKLY CLASS.
--- NOTE | 2021-06-02 12:27 | NUR ---
During IDT conference today, home evaluation was scheduled for , 06/08/21 at 1 PM. Patient reported that today her family is building a ramp at the back door of her home. Before the home evaluation, her is going to place a large bed in the living room to make things easier for her when she is home. Patient is aware that she is to return to this center after her home evaluation.
--- NOTE | 2021-06-02 16:37 | NUR ---
04/02/21 1605 PT LYING IN BED BRIEF CHANGE X 1 WET CLEAR IN COLOR NO ODOR.ICE PROVIDED AT BEDSIDE.CALL LIGHT WITHIN REACH.CC
[2021-06-02 20:00] VITALS: BP 100/49; TEMP 97.7
--- NOTE | 2021-06-03 07:51 | NUR ---
Continues to be in the Swing Bed Program and continues to be on the same diet with mosit meats and strawberry Ensure and resdient relaly does not likes the drink but kept in the room and is drinking at times. Able to lift her right leg off the bed. Like the strawberry ensure cold and on ice. Pharmacy has tried over and over and can't get the probiotics. States feels great and I talked with Lianne CHAN merchandise team manager today after she told me the patient was on multiple medications for constipation and ask her to offer the patient prune juice and she drank 2 each so should have a good BM. RD available as needed.
[2021-06-03 08:00] VITALS: BP 114/44; TEMP 97.9
[2021-06-03 20:00] VITALS: BP 116/49; TEMP 98.1
[2021-06-04 08:00] VITALS: BP 125/54; TEMP 98
--- NOTE | 2021-06-04 18:40 | NUR ---
PT has rested throughout the day in bed with no c/o. Cont to have incontinent episodes but will call for bedpan at times. No s/s of distress. Call light in easy reach.
[2021-06-04 19:58] VITALS: BP 128/60; TEMP 98.9
[2021-06-05 08:00] VITALS: BP 119/59; TEMP 97.7
--- NOTE | 2021-06-05 10:29 | NUR ---
After gaining permission from Mrs. Yao, entered her room this morning. She was watching television while talking on the phone. Offered to return later, but she said "come on in". She told the person on the phone, "I will talk to you later. I have company". Conversed with Mrs. Yao for a while then she stated, "I am going home afternoon for a home evaluation at 3:00, but I am coming back". On 06/02/21, the home eval was scheduled for 1:00 PM per family request during the IDT conference. Did not mention the discrepancy in the time to the patient. Will call therapy department and clarify time, then notify patient if it is different from what she said. Upon leaving her room, Mrs. Yao turned her attention back to the television show she was watching earlier. Called therapy department and clarified that the home evaluation is scheduled for 3:00 PM 06/08/21.
[2021-06-05 20:00] VITALS: BP 128/53; TEMP 98.5
--- NOTE | 2021-06-06 05:23 | NUR ---
Pt is resting quietly in bed with eyes closed. No c/o pain/discomfort voiced. Pt cont to have RLE weakness and requires help when turning and repositioning. Pt will call for bedpan at times but is also has incontinent episodes. PRN tramadol given at hs for c/o right shoulder and right hip pain with relief noted. No s/s of distress noted. Call light in easy reach.
[2021-06-06 08:00] VITALS: BP 120/60; TEMP 98
--- NOTE | 2021-06-06 09:56 | NUR ---
06/06/21 5874 PHYSICAL THERAPY IN ROOM,PT USING BICYCLE EXECERCISER.CC
--- NOTE | 2021-06-06 12:30 | NUR ---
06/06/21 ASSISTED PT BACK TO BED FROM CHAIR PT USING WALKED PIVOTED WITH ASSSIT.CC
[2021-06-06 20:00] VITALS: BP 120/46; TEMP 98.6
--- NOTE | 2021-06-07 02:30 | NUR ---
PT resting in bed with no c/o. Incontinent care provided. No s/s of distress. Call light in easy reach.
[2021-06-07 08:00] VITALS: BP 137/71; TEMP 97.9
--- NOTE | 2021-06-07 10:47 | NUR ---
Talked with Mrs. Yao and her granddaughter, Nicole Goldberg, yesterday regarding neurology care for Mrs. Yao after discharge from this center. Per Nicole, Mrs. Yao and she have chosen to return to [place] to establish care with a neurologist rather than establish care with a local neurologist. Contacted Rodolfo March at , Mrs. Yao's outpatient case manager at [facility] in [place] to determine the name of the neurologist that saw Mrs. Yao while she was hospitalized there. Nicole stated that she and Mrs. Yao remember the following three doctors that may have been the neurologist, and they would like to see one of them or their collegues in their [place] office: Dr. Patricio, Dr. Palomo, or Dr. Souza. Per Rodolfo March, there are no neurologists at [facility] by that name. Rodolfo indicated that she may have seen the neurologist at [facility] () and provided the following numbers for the main lines at : and . is no available documentation from any of those doctors in Mrs. Yao's record at [facility] and and
--- NOTE | 2021-06-07 11:10 | NUR ---
Called [facility] and asked for the neurology department. Phone number for neurology at is . Explained that Mrs. Yao desired to set up an appointment with the neurologist that saw her while she was hospitalized in [place]. Temperer able to see that she had an appointment scheduled with neurologist Dr. Ghosh for follow up, but that appointment was cancelled due to Mrs. Yao being hospitalized. Gave the corn press operator the names of the 3 doctors mentioned in the previous note as possibly being the neurologist that Mrs. Yao saw while in [place]. Neurology corn press operator said there is not a Dr. Palomo or Dr. Patricio in their neurology department. There is however, a neurologist by the name of Dr. Netta Souza that has multiple offices. To contact Dr. Souza office call neurology at . Per that office, Mrs. Yao must have a referral from a physician to obtain an appointment even though she has had a telehealth visit with him while she was hospitalized. The fax number to send the referral is .
--- NOTE | 2021-06-07 16:56 | NUR ---
06/07/21 1650 AWAKE ALERT MEDICATED WITH TYLENOL FOR SHOULDER PAIN FOLLOWING THERAPY.PT LYING IN BED CALL LIGHT WITHIN REACH.CC
[2021-06-07 20:00] VITALS: BP 120/52; TEMP 97.9
[2021-06-08 08:00] VITALS: BP 134/87; TEMP 98.2
[2021-06-08 20:00] VITALS: BP 133/62; TEMP 99.1
--- NOTE | 2021-06-09 02:53 | NUR ---
ROUNDS MADE. PT WITH NO COMPLAINTS. PT PLACED ON BEDPAN TO URINATE. VOIDED AND THEN PT WAS CLEANED.
[2021-06-09 08:00] VITALS: BP 117/57; TEMP 98.4
--- NOTE | 2021-06-09 10:19 | NUR ---
PT LAYING LOW FOWLERS IN BED. ENCOURAGED PT TO USE BEDSIDE COMMODE, NO VERBAL FEEDBACK FROM PT REGARDING USE OF BEDSIDE COMMODE.
--- NOTE | 2021-06-09 13:33 | NUR ---
SCHEDULED SWING BED MEETING HELD AT PTS BEDSIDE WITH STAFF AND GRANDDAUGHTER, RAMON ON SPEAKER PHONE. ENCOURAGED PT TO USE BEDSIDE COMMODE, BEDSIDE COMMODE PLACED IN PTS ROOM. PT DENIES ANY PAIN/DISCOMFORT. NO VOICED COMPLAINTS.
--- NOTE | 2021-06-09 18:03 | NUR ---
PT AWAKE AND LAYING LOW FOWLERS IN BED. PT DENIES ANY PAIN/DISCOMFORT. PT HAS NOT HAD TO USE THE BEDSIDE COMMODE THIS SHIFT. NO VOICED COMPLAINTS THIS SHIFT.
[2021-06-09 20:00] VITALS: BP 140/55; TEMP 98.5
[2021-06-10 08:00] VITALS: BP 131/68
--- NOTE | 2021-06-10 12:30 | NUR ---
PT STATES PATIENT AMBULATED TO THE [facility] COMMODE FOR THE FIRST TIME USING THE WALKER AND LIMITED ASSITANCE X1, PT IS ABLE TO MOVE RT ARM AND LEG MORE THAN PREVIOUS AND GRASP IS STRONGER ON RT SIDE
[2021-06-10 20:00] VITALS: BP 130/62; TEMP 98.3
[2021-06-11 08:00] VITALS: BP 143/65; TEMP 97.6
[2021-06-11 20:00] VITALS: BP 147/66; TEMP 98.5
[2021-06-12 08:00] VITALS: BP 119/70; TEMP 98.4
--- NOTE | 2021-06-12 12:49 | NUR ---
06/12/21 0830 RESTING QUEITLY WITH EYES CLOSED RESP EVEN NONLABORED.CC 06/12/21 1000 BRIEF CHANGED WITH CLEAR URINE.CC
--- NOTE | 2021-06-12 13:44 | NUR ---
06/12/21 1341 SITTING UP IN CHAIR EATING LUNCH AFTER TALKING ON PHONE WITH FAMILY CALL LIGHT WITHIN REACH.CC
--- NOTE | 2021-06-12 15:41 | NUR ---
06/12/21 1540 PT TRIED TO HAVE A BOWEL MOVEMENT WAS HARD TO GET OUT WAS ABLE TO GET SMALL [place] STOOL OUT.MILK OF MAGNESIUM GIVEN.CC
--- NOTE | 2021-06-12 18:49 | NUR ---
06/12/21 1840 NO C/O VOICED RESP EVEN NONLABORED.CC
[2021-06-12 20:00] VITALS: BP 128/59; TEMP 98.2
--- NOTE | 2021-06-12 23:08 | NUR ---
PT WAS ASSESSED AND PM MEDICATIONS WERE GIVEN AT 21:00. PT IS SWING BED STATUS. PT IN PLEASANT MOOD AND NO COMPLAINTS VOICED.
[2021-06-13 08:00] VITALS: BP 138/65; TEMP 98.1
--- NOTE | 2021-06-13 12:23 | NUR ---
06/13/21 11.15 PT MOVED TO ROOM 1102 ORIENTED TO ROOM CALL LIGHT WITHIN REACH.CC
--- NOTE | 2021-06-13 13:33 | NUR ---
06/13/21 1330 LYING IN BED WATCHING T.Annika STATED SHE JUST GOT BACK IN BED FROM THERAPY.SHE SAID SHE IS GOING TO EAT HER LUNCH NOW.CALL LIGHT WITHIN REACH.CC
--- NOTE | 2021-06-13 14:55 | NUR ---
06/13/21 1450 AT WINDOW TO SEE STATES HE WILL BE GLAD TO GET HER HOME.CALL LIGHT WITHIN REACH.CC
[2021-06-13 20:00] VITALS: BP 111/50; TEMP 98.7
[2021-06-14 08:00] VITALS: BP 142/66; TEMP 98.9
--- NOTE | 2021-06-14 09:58 | NUR ---
Went with WINCH STRIPPER to room to put patient on the bedside commode. Patient has a male visitor at the window and is talking on the phone with him. Advised patient that we were there to put her on the bedside commode and she stated that therapy was going to put her on the commode when they arrive. She denied the need to use the bedside commode at this time. Told her that we were there to help her practice using the bedside commode. She stated she wanted to wait for therapy. WINCH STRIPPER offered to give her a bath this morning and patient said she did want to get a bath. Left the room to let her complete her window visit in privacy and WINCH STRIPPER will return to bathe her.
--- NOTE | 2021-06-14 13:17 | NUR ---
PT SITTING UP IN CHAIR, NAD NOTED, NONLABORED BREATHING, BED LINENS CHANGED AT THIS TIME, ST IN RM WITH PT, CALL LIGHT AYAZ TORRES, WILL CONTINUE TO MONITOR
--- NOTE | 2021-06-14 16:01 | NUR ---
IN PT RM TO FLUSH PEG WITH SPRITE PER DR ORDERS, DRESSING REMOVED AND CLEANED PEG INSERTION AREA, REDRESSED WITH GAUZE, 20ML RESIDUAL NOTED ON RETURN FROM PEG, FLUSHED PEG WITH 30ML OF WATER WITHOUT DIFFICULTY, INSTILLED 50ML SPRITE WITHOUT DIFFICULTY, FLUSHED AGAIN WITH 30ML WATER, DRESSED PEG TUBE WITH ABD PAD AND TAPED SECURED WITH MEDAPHOR TAPE, PT TOLERATED WELL, PT NOTED TO HAVE ABRASION ON RT BUTTOCK, PT STATES WHILE SHE WAS GETTING SHOWER THIS AM SHE MOVED UP IN THE CHAIR AND IT CAUSED THE ABRASION, SITE CLEAN WITH NO DRAINAGE NOTED, NO FURTHER NEEDS AT THIS TIME, CALL LIGHT PLACED WITHIN REACH, WILL CONTINUE TO MONITOR
[2021-06-14 20:00] VITALS: BP 152/72; TEMP 98.6
[2021-06-15 08:00] VITALS: BP 127/57; TEMP 97.8
--- NOTE | 2021-06-15 16:11 | NUR ---
Family member outside patient's room window, talking to her on the telephone. Patient stated she had a delivery out front and asked that it be brought to her. Delivered plastic bag and upon request opened for her. Inside plastic container, resident has watermelon already cut into bite-size pieces. Assisted patient in washing her hands and provided her with a fork. Patient denied need for anything else. Patient continued window visit with family member while eating the watermelon she just received.
[2021-06-15 20:00] VITALS: BP 142/62; TEMP 98.2
[2021-06-16 08:00] VITALS: BP 123/49; TEMP 98.5
--- NOTE | 2021-06-16 13:40 | NUR ---
Patient's primary care physician is Dr. Regalado. Appointment made with Dr. Regalado for 06/28/21 at 8:30 AM for follow up post discharge. Have faxed referral to Dr. Netta Souza (neurologist in [place]) at . Telephone number for neurology department at [facility] is to schedule appointment and familiy desires that appointment to be on a Saturday, not too early. Needs an appointment scheduled for follow-up with Dr. Romero in [place], [place]. Needs a new patient appointment scheduled with Dr. Miranda, ski guide, to establish care for chronic kidney disease.
[2021-06-16 20:00] VITALS: BP 129/53; TEMP 97.9
--- NOTE | 2021-06-17 02:40 | NUR ---
NO COMPLAINTS VOICED. PT SB STATUS.
[2021-06-17 08:00] VITALS: BP 127/60; TEMP 97.9
--- NOTE | 2021-06-17 10:32 | NUR ---
Talked with Lianne yesterday and the patient is to go home Saturday which is Grandparent's day and the grand daughter it is her birthday and all is a surprise for the patient. Weights stable and continues on diet and recieves moist meals and also a Glucerna with meals. RD available as needed. In the Swing bed Program.
--- NOTE | 2021-06-17 17:41 | NUR ---
PEG TUBE DRESSING CHANGED. CLEAN DRY AND INTACT. PATIENT TOLERATED WELL.
[2021-06-17 20:27] VITALS: BP 124/58; TEMP 98.3
--- NOTE | 2021-06-18 02:27 | NUR ---
PT SWING BED STATUS . PT WITH NO COMPLAINTS. PT HAS BEEN OFFERED ASSISTANCE WITH USING BSC. PT DOES NOT COMPLY. PT CONTINUES TO URINATE IN HER BRIEFS.
--- NOTE | 2021-06-18 06:25 | NUR ---
PT HAS RESTED THIS SHIFT. PT TO BE DISCHARGED TODAY TO HOME.
[2021-06-18 08:00] VITALS: BP 139/66; TEMP 98.2
--- NOTE | 2021-06-18 19:42 | NUR ---
1215 PT TRANSPORTED OUT OF FACILITY VIA WC. D/C INSTRUCTIONS GIVEN TO GRANDDAUGHTER JESSICA. MULTIPLE FAMILY MEMBERS AND GRANDCHILDREN GREETED PT JESSICA VERBALIZED UNDERSTANDING OF D/C INSTRUCTIONS.
--- NOTE | 2021-06-19 11:11 | NUR ---
Called back to Dr. Benedicto Romero' office, at to schedule an established patient follow up appointment after discharge from [facility] 06/18/21. Appointment with Dr. Romero in [place] scheduled for Saturday06/28/21 at 1:15 PM.
--- NOTE | 2021-06-19 11:25 | NUR ---
Called [facility], Dr. Jeninfer Cole, again at [phone] to establish a new patient appointment for Mrs. Yao. Dr. Cole will review the documentation faxed to them at [phone] and call Mrs. Yao's granddaughter, Nicole Goldberg, to schedule appointment since Nicole is planning to take her to the appointment.
--- NOTE | 2021-06-19 13:10 | NUR ---
Faxed outpatient therapy order for OT and PT to fax number [phone].
--- NOTE | 2021-06-21 15:29 | NUR ---
Called Dr. Souza office at [facility] to check on the status of Mrs. Yao's referral. Telephone number to his office is and referral request with medical records for his review faxed to last week. Carlene scheduled appointment with Dr. Souza. Family had requested that appointment be made on a Saturday, not too early as they will be driving to [place] that morning. Dr. Souza only sees patients on Saturday morning at either 8 or 9 AM. Appointment scheduled for 07/17/21 at 9 AM. Address for his office - Medical office building 4th floor, [address] [address].
--- NOTE | 2021-06-21 16:23 | NUR ---
Called Dr. Romero office at to move appointment scheduled for 06/28/21 at 1:15 PM due to already having an appointment with Dr. Regalado at 8:[address] Romero appointment was changed to Saturday07/03/21 at 3:30 PM.
--- NOTE | 2021-06-21 16:36 | NUR ---
Called Mrs. Yao's granddaughter Nicole Goldberg to notify her of Mrs. Yao's appointments. Dr. Cole's office and outpatient therapy have already called her today with their appointments. Mrs. Yao has the following appointments: 06/28/21 - Dr. Regalado, her PCP, at 8:30 AM. 06/28/21 - Outpatient therapy evaluations at 9 AM and 10 AM 07/03/21 - Dr. Nick georges Gotham, her dining room cashier for follow up, at 3:30 PM. 07/17/21 - Cherie Ramon neurologist, at 9 AM. 07/18/21 - Varinder Augustine lithographic printing machinist, at 9:45 AM.
--- NOTE | 2021-06-21 17:19 | NUR ---
Faxed medical records including discharge summary to Dr. Regalado's office at [phone]. Previously faxed same to other offices listed above as well.
== END 2021-06-18 12:15 | disposition home or self-care (01) | DRG 56 ==
LOC: MED/SURG 13:45
PROVIDERS: ADMIT Internal Medicine Endocrinology, Diabetes & Metabolism; ATTEND Internal Medicine Endocrinology, Diabetes & Metabolism
DX: I69.351 Hemiplegia and hemiparesis following cerebral infarction affecting right dominant side (principal); I69.321 Dysphasia following cerebral infarction; R13.12 Dysphagia, oropharyngeal phase; I69.320 Aphasia following cerebral infarction; Z43.1 Encounter for attention to gastrostomy; E11.9 Type 2 diabetes mellitus without complications; R48.8 Other symbolic dysfunctions; M62.81 Muscle weakness (generalized); R26.2 Difficulty in walking, not elsewhere classified; E43 Unspecified severe protein-calorie malnutrition; Z74.1 Need for assistance with personal care; I25.10 Atherosclerotic heart disease of native coronary artery without angina pectoris; I12.9 Hypertensive chronic kidney disease with stage 1 through stage 4 chronic kidney disease, or unspecified chronic kidney disease; N18.9 Chronic kidney disease, unspecified; E03.9 Hypothyroidism, unspecified; E78.5 Hyperlipidemia, unspecified; G47.33 Obstructive sleep apnea (adult) (pediatric); L89.151 Pressure ulcer of sacral region, stage 1; Z95.0 Presence of cardiac pacemaker; E55.9 Vitamin D deficiency, unspecified
CPT/HCPCS: 87081; 94760; J1650; J1885

== ENCOUNTER 2021-11-02 10:07 | Outpatient (CLI) | payer OTHER | END 2021-11-02 20:46 | disposition home or self-care (01) | LOC: LABW 10:07 | PROVIDERS: ATTEND Internal Medicine | DX: N18.32 Chronic kidney disease, stage 3b (principal); E78.49 Other hyperlipidemia; E11.9 Type 2 diabetes mellitus without complications; I63.9 Cerebral infarction, unspecified ==

== ENCOUNTER 2021-11-03 09:55 | Outpatient (CLI) | payer OTHER ==
[2021-11-03 11:31] LABS: PLATELET COUNT 156 K/uL (152-353)
[2021-11-03 11:59] LABS: POTASSIUM 4.2 mmol/L (3.6-5.2)
== END 2021-11-03 23:07 | disposition home or self-care (01) ==
LOC: LAB 09:55
PROVIDERS: ATTEND Nuclear Medicine Nuclear Cardiology
DX: E78.5 Hyperlipidemia, unspecified (principal); E11.9 Type 2 diabetes mellitus without complications; N18.30 Chronic kidney disease, stage 3 unspecified; I63.9 Cerebral infarction, unspecified
CPT/HCPCS: 80053; 80061; 81000; 82043; 82306; 82330; 82570; 82607; 82728; 82746; 83036; 83540; 83550; 83735; 83970; 84100; 84155; 84439; 84443; 85027; 85652

== ENCOUNTER 2021-11-09 10:05 | Outpatient (CLI) | payer OTHER | END 2021-11-09 21:20 | disposition home or self-care (01) | LOC: RAD 10:05 | PROVIDERS: ATTEND Internal Medicine | DX: M25.511 Pain in right shoulder (principal) ==

== ENCOUNTER 2022-01-22 11:09 | Outpatient (CLI) | payer OTHER | END 2022-01-22 19:54 | disposition home or self-care (01) | LOC: US 11:09 | PROVIDERS: ATTEND Internal Medicine | DX: R19.09 Other intra-abdominal and pelvic swelling, mass and lump (principal); M79.89 Other specified soft tissue disorders ==

== ENCOUNTER 2022-03-21 11:51 | Outpatient (CLI) | payer OTHER | END 2022-03-21 19:12 | disposition home or self-care (01) | LOC: RAD 11:51 | PROVIDERS: ATTEND Internal Medicine | DX: R09.1 Pleurisy (principal) ==

== ENCOUNTER 2022-07-09 11:27 | Outpatient (CLI) | payer OTHER | END 2022-07-09 20:45 | disposition home or self-care (01) | LOC: RAD 11:27 | PROVIDERS: ATTEND Internal Medicine | DX: M25.511 Pain in right shoulder (principal); R10.84 Generalized abdominal pain ==

== ENCOUNTER 2022-07-12 08:38 | Outpatient (CLI) | payer OTHER | END 2022-07-12 19:04 | disposition home or self-care (01) | LOC: MAMMO 08:38 | PROVIDERS: ATTEND Internal Medicine | DX: R10.84 Generalized abdominal pain (principal); Z12.31 Encounter for screening mammogram for malignant neoplasm of breast | CPT/HCPCS: 36415; 82565; 84520 ==

== ENCOUNTER 2022-08-14 12:36 | Outpatient (CLI) | payer OTHER ==
[2022-08-14 13:19] LABS: POTASSIUM 4.7 mmol/L (3.6-5.2)
== END 2022-08-14 19:16 | disposition home or self-care (01) ==
LOC: LAB 12:36
PROVIDERS: ATTEND Internal Medicine
DX: E11.9 Type 2 diabetes mellitus without complications (principal); E78.49 Other hyperlipidemia; I10 Essential (primary) hypertension
CPT/HCPCS: 80053; 80061; 83036

== ENCOUNTER 2022-09-21 14:36 | Outpatient (CLI) | payer OTHER | END 2022-09-21 18:59 | disposition home or self-care (01) | LOC: LABW 14:36 → CT 15:00 → LABW 18:59 | PROVIDERS: ATTEND Nuclear Medicine Nuclear Cardiology | DX: N39.0 Urinary tract infection, site not specified (principal); N20.0 Calculus of kidney; R10.9 Unspecified abdominal pain | CPT/HCPCS: 81000; 87086; 87088 ==

== ENCOUNTER 2023-01-07 14:50 | Outpatient (CLI) | payer OTHER ==
[2023-01-07 15:37] LABS: PLATELET COUNT 169 K/uL (152-353)
[2023-01-07 15:59] LABS: POTASSIUM 4.2 mmol/L (3.6-5.2)
== END 2023-01-07 20:39 | disposition home or self-care (01) ==
LOC: LAB 14:50
PROVIDERS: ATTEND Internal Medicine
DX: E11.9 Type 2 diabetes mellitus without complications (principal)
CPT/HCPCS: 80053; 80061; 83036; 84439; 84443; 85027

== ENCOUNTER 2023-03-20 10:09 | Outpatient (CLI) | payer OTHER | END 2023-03-20 22:09 | disposition home or self-care (01) | LOC: RESP 10:09 | PROVIDERS: ATTEND Nuclear Medicine Nuclear Cardiology | DX: Z01.818 Encounter for other preprocedural examination (principal); Z79.899 Other long term (current) drug therapy ==

== ENCOUNTER 2023-03-26 08:51 | Outpatient (CLI) | payer OTHER | END 2023-03-26 19:06 | disposition home or self-care (01) | LOC: RAD 08:51 | PROVIDERS: ATTEND Internal Medicine | DX: M79.671 Pain in right foot (principal); M79.89 Other specified soft tissue disorders ==

== ENCOUNTER 2023-04-05 11:48 | Outpatient (CLI) | payer OTHER ==
[2023-04-05 12:11] LABS: POTASSIUM 4.3 mmol/L (3.6-5.2)
== END 2023-04-05 19:12 | disposition home or self-care (01) ==
LOC: LAB 11:48
PROVIDERS: ATTEND Nuclear Medicine Nuclear Cardiology
DX: N18.32 Chronic kidney disease, stage 3b (principal)
CPT/HCPCS: 36415; 80053; 83735

== ENCOUNTER 2023-05-02 14:43 | Outpatient (CLI) | payer OTHER | END 2023-05-02 20:56 | disposition home or self-care (01) | LOC: US 14:43 | PROVIDERS: ATTEND Internal Medicine | DX: M79.89 Other specified soft tissue disorders (principal) ==

== ENCOUNTER 2023-07-11 14:08 | Outpatient (CLI) | payer OTHER | END 2023-07-11 19:26 | disposition home or self-care (01) | LOC: LAB 14:08 → EDSTATUS 14:15 → LAB 19:26 | PROVIDERS: ATTEND Internal Medicine | DX: N39.0 Urinary tract infection, site not specified (principal) | CPT/HCPCS: 87077; 87086; 87088; 87186 ==

== ENCOUNTER 2023-07-23 09:04 | Outpatient (CLI) | payer OTHER | END 2023-07-23 18:59 | disposition home or self-care (01) | LOC: MAMMO 09:04 | PROVIDERS: ATTEND Internal Medicine | DX: Z12.31 Encounter for screening mammogram for malignant neoplasm of breast (principal) ==